=== PATIENT | female | born 1985 ===

== ENCOUNTER 2018-03-28 00:13 | Emergency (ER) | payer OTHER ==
[2018-03-28 00:15] VITALS: BMI 27.6
[2018-03-28 00:27] VITALS: RESP 20
[2018-03-28] MEDS ORDERED: Sodium Chloride 0.9% 1,000 ML IV ONE (00:29)
--- NOTE | 2018-03-28 00:46 | C.PDOC ---
History Of Present Illness 33 year old female presents to the ER with a complaint of body aches, specifically to her forearms and thighs, for the past 3 months. Pain waxes and wanes, usually controlled with antiinflammatories. Notes she took naproxen this morning without imporvement. Pt was evaluated for the symptoms3 months ago when symptoms started, followed up with a lotus notes developer and diagnosed with arthritis. She was started on Plaquenil and naproxen. Denies fever, weakness, numbness, trauma, rash, abdominal pain, chest pain, sob, or vomiting. Time Seen by Provider: 03/28/18 00:18 Chief Complaint (Nursing): Flu-like Symptoms History Per: Patient, Shoder Filler (Kenzie Ortega) History/Exam Limitations: no limitations Onset/Duration Of Symptoms: Days Current Symptoms Are (Timing): Still Present Recent travel outside of the [place]: No Past Medical History Reviewed: Historical Data, Nursing Documentation, Vital Signs Vital Signs: Last Vital Signs Temp 98.1 F 03/28/18 02:33 Pulse 81 03/28/18 02:33 Resp 20 03/28/18 02:33 BP 130/71 03/28/18 02:33 Pulse Ox 99 03/28/18 02:33 - Medical History PMH: Arthritis Family History: States: Diabetes (father), Hypertension (mother) - Social History Hx Alcohol Use: Yes Hx Substance Use: No Review Of Systems Constitutional: Negative for: Fever, Chills Gastrointestinal: Negative for: Nausea, Vomiting Musculoskeletal: Positive for: Arm Pain, Leg Pain Neurological: Negative for: Weakness, Numbness Physical Exam - Physical Exam Appears: Well, Non-toxic, No Acute Distress Skin: Normal Color, Warm, Dry Head: Atraumatic, Normacephalic Eye(s): bilateral: Normal Inspection, EOMI Nose: Normal Oral Mucosa: Moist Throat: Normal, No Erythema, No Exudate Neck: Normal ROM, Supple Chest: Symmetrical, No Tenderness Cardiovascular: Rhythm Regular Respiratory: Normal Breath Sounds, No Rales, No Rhonchi, No Wheezing Gastrointestinal/Abdominal: Soft, No Tenderness Back: No Vertebral Tenderness, No Paraspinal Tenderness Extremity: Normal ROM (x4), Tenderness (diffsue tenderness to extremities), Capillary Refill (<2 sec), No Swelling Pulses: Left Radial: Normal, Right Radial: Normal, Left Dorsalis Pedis: Normal, Right Dorsalis Pedis: Normal Neurological/Psych: Oriented x3, Normal Speech, Normal Motor, Normal Sensation Gait: Steady ED Course And Treatment - Laboratory Results Result Diagrams: 03/28/18 00:46 03/28/18 00:46 O2 Sat by Pulse Oximetry: 96 (Room air) Pulse Ox Interpretation: Normal Progress Note: Blood work and urinalysis ordered, results were negative. IV fluids and toradol administered. On reevaluation, patient is resting comfortably in the ER in no acute distress, she reports improvement of her body aches and is no longer in any discomfort. Will discharge home with Rx and instructions to follow up with lotus notes developer as scheduled on Monday. Disposition - Disposition Disposition: HOME/ ROUTINE Disposition Time: 02:22 Condition: STABLE Additional Instructions: SEGUIMIENTO CON SIERRA MDICO EN 1-2 TRONCOSO. VUELVA A ER SI LOS SNTOMAS PERSISTEN O VUELVEN. Prescriptions: Nitrofurantoin Macrocrystals [Macrobid] 1 cap PO BID #14 cap Instructions: Muscle and Bone Pain (DC) Forms: [employer] (Latvian) Print Language: CITIZEN OF [place] - Clinical Impression Clinical Impression: Myalgia - PA / PAINTER / Resident Statement MD/DO has reviewed & agrees with the documentation as recorded. - Scribe Statement The provider has reviewed the documentation as recorded by the Scribindira Ortega All medical record entries made by the Scribe were at my direction and personally dictated by me. I have reviewed the chart and agree that the record accurately reflects my personal performance of the history, physical exam, medical decision making, and the department course for this patient. I have also personally directed, reviewed, and agree with the discharge instructions and disposition.
[2018-03-28 00:49] LABS: BASO % 0.5 % (0.0-2.0); EOS # 0.2 K/uL (0.0-0.7); HEMOGLOBIN 13.8 g/dL (11.0-16.0); LYMPH % 35.5 % (20.0-40.0); MEAN CELL VOLUME 87.7 fL (81.0-99.0); MEAN CORPUSCULAR HEMOGLOBIN 30.9 pg (27.0-31.0); MEAN CORPUSCULAR HGB CONC 35.2 g/dL (33.0-37.0); MEAN PLATELET VOLUME 8.2 fL (7.2-11.7); MONO # 0.7 K/uL (0.0-0.8); MONO % 8.3 % (0.0-10.0); NEUT # 4.6 K/uL (1.8-7.0); NEUT % 53.7 % (50.0-75.0); RBC 4.48 Mil/uL (3.80-5.20); RED CELL DISTRIBUTION WIDTH 12.2 % (11.5-14.5); WHITE BLOOD COUNT 8.5 K/uL (4.8-10.8)
[2018-03-28] MEDS ORDERED: Sodium Chloride 0.9% 1,000 ML ONE (00:55)
[2018-03-28 00:57] LABS: HCG,QUALITATIVE URINE NEGATIVE (NEGATIVE)
[2018-03-28 01:02] LABS: SQUAMOUS EPITHIAL 6 /hpf (0-5); URINE BILIRUBIN NEGATIVE (NEGATIVE); URINE BLOOD NEGATIVE (NEGATIVE); URINE CLARITY Clear (Clear); URINE COLOR Straw (YELLOW); URINE GLUCOSE (UA) NORMAL (Normal); URINE PROTEIN NEGATIVE (NEGATIVE); URINE UROBILINOGEN NORMAL mg/dL (0.2-1.0)
[2018-03-28 01:11] LABS: ALB/GLOB RATIO 1.3 (1.0-2.1); ALBUMIN 4.5 g/dL (3.5-5.0); ALT/SGPT 26 U/L (9-52); AST/SGOT 27 U/L (14-36); BLOOD UREA NITROGEN 9 mg/dL (7-17); CALCIUM 9.3 mg/dl (8.6-10.4); GFR AFRICAN-AMERICAN > 60; GFR NON-AFRICAN AMERICAN > 60
[2018-03-28 01:21] LABS: URINE BACTERIA FEW (<OCC); URINE LEUKOCYTE ESTERASE 2+ Leu/uL (Negative)
[2018-03-28 02:35] VITALS: BP 130/71; PULSE 81; TEMP 98.1
[2018-03-28 02:46] VITALS: O2SAT 96
== END 2018-03-28 02:35 | disposition home or self-care (01) ==
LOC: C.ER 00:13
DX: M79.1 Myalgia (principal); M19.90 Unspecified osteoarthritis, unspecified site
CPT/HCPCS: 80053; 81001; 82550; 84703; 85025; 85651; 96361; 96374; 99285; J1885; J7030